=== PATIENT | female | born 2000 | race Caucasian/White ===

== ENCOUNTER 2022-12-19 14:53 | Emergency (ER) | payer MEDICAID ==
[~2022-12-19] VITALS: Ht 162.6 cm; Wt 75.0 kg
[2022-12-19 14:55] VITALS: TEMP 98
[2022-12-19] MEDS ORDERED: PEN-VEE K500 MG PO (15:38)
[2022-12-19 15:46] VITALS: BP 102/68; PULSE 84
== END 2022-12-19 15:48 | disposition home or self-care (01) ==
LOC: COL.ER 14:53
DX: K04.7 Periapical abscess without sinus (principal); Z28.310 Unvaccinated for COVID-19